=== PATIENT | female | born 2005 ===

== ENCOUNTER 2024-06-24 19:00 | Inpatient (IN) | payer OTHER ==
[2024-06-24] MEDS ORDERED: Misoprostol 200 MCG TAB PR PRN (23:17)
[2024-06-24] MEDS ORDERED: Acetaminophen 500 MG TAB PO PRN (23:17)
[2024-06-24] MEDS ORDERED: Tranexamic Acid 1,000 MG/10 ML VIAL IVP PRN (23:17)
[2024-06-24] MEDS ORDERED: Diphenoxylate HCl/Atropine Tablet PO PRN (23:17)
[2024-06-24] MEDS ORDERED: Lidocaine 1% (PF) 30 ML VIAL SC PRN (23:17)
[2024-06-24] MEDS ORDERED: Methylergonovine 0.2 MG/ML VIAL IM PRN (23:17)
[2024-06-24] MEDS ORDERED: Carboprost 250 MCG/ML AMP IM PRN (23:17)
[2024-06-24] MEDS ORDERED: Ibuprofen 800 MG TAB PO PRN (23:17)
[2024-06-24] MEDS ORDERED: Ondansetron PF 4 MG/2 ML Vial IVP PRN (23:17)
[2024-06-24] MEDS ORDERED: HYDROcodone/Acetaminophen 5/325 mg Tablet PO PRN (23:17)
[2024-06-24] MEDS ORDERED: hydrALAZINE 20 MG/ML VIAL SLOW IVP PRN (23:17)
[2024-06-24] MEDS ORDERED: fentaNYL 50 mcg/mL 1 mL Vial SLOW IVP PRN (23:17)
[2024-06-24] MEDS ORDERED: Promethazine HCl 25 MG/ML VIAL IM PRN (23:17)
[2024-06-24 23:18] VITALS: BMI 30.5
[2024-06-24] MEDS ORDERED: Oxytocin 30 units/NS 500 ML 500 ML IV SCH ×2 (23:30)
[2024-06-24 23:43] LABS: Hematocrit 29.5 % (34.9-44.5); Hemoglobin 9.6 g/dL (12.0-15.5); Mean Corpuscular HGB CONC 32.5 g/dL (32.0-36.0); Mean Corpuscular Hemoglobin 24.1 pg (27.0-33.0); Mean Corpuscular Volume 74.1 fL (81.6-98.3); Mean Platelet Volume 9.9 fL (7.4-10.4); Platelet Count 309 10x3/uL (150-450); RBC Distribution Width 14.3 % (11.5-14.5); Red Blood Cell (RBC) Count 3.98 10x6/uL (3.90-5.03); White Blood Cell (WBC) Count 8.4 10x3/uL (3.5-10.5)
[2024-06-25 00:04] LABS: Syphilis Antibody Nonreactive (Nonreactive); Syphilis Antibody Index 0.05 S/CO (<1.00 Non-Reactive)
[2024-06-25] MEDS: Lactated Ringer's 1,000 ML IV SCH (00:05)
[2024-06-25] MEDS: Misoprostol 100 MCG TAB PO SCH (00:05)
[2024-06-25 00:06] LABS: HBsAg Index 0.26 S/CO (0-0.99); Hep B Surf Ag - L&D Non-Reactive S/CO (NonReactive)
[2024-06-25] MEDS: fentaNYL/Ropivacaine Epidural 100 ML ONE (08:48)
[2024-06-25] MEDS: Oxytocin 30 units/NS 500 ML 500 ML IV SCH (10:23)
[2024-06-25] MEDS ORDERED: ePHEDrine Sulfate 50 MG/10 ML VIAL SLOW IVP PRN (10:53)
[2024-06-25] MEDS ORDERED: Moisturizing Cream (Eucerin) 113 GM JAR TOP PRN (10:53)
[2024-06-25] MEDS ORDERED: Promethazine HCl 25 MG/ML VIAL IM PRN (10:53)
[2024-06-25] MEDS ORDERED: Acetaminophen 325 MG TAB PO PRN (10:53)
[2024-06-25] MEDS ORDERED: diphenhydrAMINE 50 MG/ML VIAL IVP PRN (10:53)
[2024-06-25] MEDS ORDERED: Ondansetron PF 4 MG/2 ML Vial IVP PRN ×2 (10:53→15:34)
[2024-06-25] MEDS ORDERED: Naloxone HCl 0.4 mg/ml Vial IVP PRN ×2 (10:53)
[2024-06-25] MEDS ORDERED: Communication Order-Pharmacy FS SCH (11:00)
[2024-06-25] MEDS ORDERED: fentaNYL 2 mcg/Ropivacaine 0.2% Epidural 100 ML CADD EPIDURAL SCH (11:00)
[2024-06-25] MEDS ORDERED: Lactated Ringer's 500 ML IV PRN (11:23)
[2024-06-25] MEDS ORDERED: Milk Of Magnesia 30 ML UDCUP PO PRN (15:34)
[2024-06-25] MEDS ORDERED: Benzocaine-Menthol 82.5 ML CAN TOP PRN (15:34)
[2024-06-25] MEDS ORDERED: diphenhydrAMINE 25 MG CAP PO PRN (15:34)
[2024-06-25] MEDS ORDERED: Boostrix 0.5 ML (Tdap) VIAL (>/=7 yrs of age) IM ONE (15:34)
[2024-06-25] MEDS ORDERED: Bisacodyl 10 MG SUPP PR PRN (15:34)
[2024-06-25] MEDS ORDERED: hydrALAZINE 20 MG/ML VIAL SLOW IVP PRN (15:34)
[2024-06-25] MEDS ORDERED: Lanolin Ointment 7 GM TUBE TOP PRN (15:34)
[2024-06-25] MEDS: Ferrous Sulfate 325 MG TAB PO SCH (16:30)
[2024-06-25] MEDS: Ibuprofen 800 MG TAB PO SCH (16:30)
[2024-06-25] MEDS: HYDROcodone/Acetaminophen 5/325 mg Tablet PO PRN (18:01)
[2024-06-25] MEDS: Docusate 100 MG CAP PO SCH (21:28)
[2024-06-26 11:30] VITALS: BP 124/79; TEMP 97.9
== END 2024-06-26 18:35 | disposition home or self-care (01) | DRG 807 ==
LOC: CSHLD 21:08 → CSHPP 06-25 15:22
PROVIDERS: ADMIT Family Medicine; ATTEND Family Medicine
PROC: 10E0XZZ Delivery of Products of Conception, External Approach (ICD-10-PCS; principal; 2024-06-25)
DX: O80 Encounter for full-term uncomplicated delivery (principal); Z37.0 Single live birth; Z3A.39 39 weeks gestation of pregnancy; Z79.899 Other long term (current) drug therapy
CPT/HCPCS: 36415; 51702; 85027; 86780; 86850; 86900; 86901; 87340; J2590; J7120